=== PATIENT | female | born 1940 | race Caucasian/White ===

== ENCOUNTER → 2018-01-24 | Outpatient (CLI) | payer MEDICARE, OTHER | LOC: M.RAD 13:53 | DX: Z12.31 Encounter for screening mammogram for malignant neoplasm of breast (principal); J84.10 Pulmonary fibrosis, unspecified; Z80.8 Family history of malignant neoplasm of other organs or systems; Z85.820 Personal history of malignant melanoma of skin ==

== ENCOUNTER → 2019-02-17 | Outpatient (CLI) | payer MEDICARE, OTHER | LOC: M.RAD 11-19 13:15 | DX: Z12.31 Encounter for screening mammogram for malignant neoplasm of breast (principal); Z13.820 Encounter for screening for osteoporosis; M85.89 Other specified disorders of bone density and structure, multiple sites; E28.39 Other primary ovarian failure; R91.8 Other nonspecific abnormal finding of lung field; M43.14 Spondylolisthesis, thoracic region; M51.36 Other intervertebral disc degeneration, lumbar region; I10 Essential (primary) hypertension; Z85.29 Personal history of malignant neoplasm of other respiratory and intrathoracic organs ==